=== PATIENT | female | born 1980 | race Caucasian/White ===

== ENCOUNTER 2017-04-20 01:03 | Emergency (ER) | payer MEDICAID, OTHER ==
[~2017-04-20] VITALS: Ht 162.6 cm; Wt 107.0 kg
[2017-04-20 01:07] VITALS: Ht 162.6 cm; Wt 107.0 kg
[2017-04-20] MEDS ORDERED: ALBUTEROL 0.5% (NEB) 2.5 MG/0.5 ML AMP INH STA (01:25)
[2017-04-20] MEDS ORDERED: DEXAMETHASONE 10 MG/ML 1 ML INJ IM STA (01:25)
[2017-04-20] MEDS ORDERED: IPRATROPIUM (NEB) 0.5 MG/2.5 ML AMP INH STA (01:25)
--- NOTE | 2017-04-20 01:57 | RADRPT ---
PROCEDURE: Portable chest x-ray. CLINICAL INDICATION: Asthma exacerbation. TECHNIQUE: Portable AP view of the chest. COMPARISON: None. FINDINGS: No pulmonary edema or conolidation is identified. The cardiac silhouette is magnified. No pleural effusion is seen. There is no pneumothorax. IMPRESSION: 1. No evidence of acute cardiopulmonary disease. RPTAT: HTAR .Brett Fuller MD, MD Date Time Electronically viewed and signed by .Brett Fuller MD, on 04/20/2017 01:57 .R/
[2017-04-20] MEDS ORDERED: ALBUTEROL 0.083% (NEB) 2.5 MG/3 ML AMP HHN ONE (03:07)
--- NOTE | 2017-04-20 05:24 | ERA ---
ER Documentation Chief Complaint Date/Time DATE: 04/20/17 TIME: 05:22 Chief Complaint Pt reports SOB and wheezing since yesterday HPI This is a 36-year-old female who reports shortness of a breath and wheezing since yesterday. Patient has history of asthma. No nausea no vomiting no fevers no chills no chest pain. Patient ran out of her inhaler. ROS All systems reviewed and are negative except as per history of present illness. Medications Home Meds No Active Prescriptions or Reported Meds Allergies Allergies: Coded Allergies: No Known Allergy (Unverified , 04/20/17) PMhx/Soc Medical and Surgical Hx: pt denies Medical Hx, pt denies Surgical Hx Hx Psychiatric Problems: No Hx Miscellaneous Medical Probl: No Hx Alcohol Use: No Hx Substance Use: No Hx Tobacco Use: No Smoking Status: Never smoker Physical Exam Vitals Vital Signs Date Time Temp Pulse Resp B/P Pulse Ox O2 Delivery O2 Flow Rate FiO2 04/20/17 04:20 118 24 139/82 98 Room Air 04/20/17 03:12 100 20 100 Aerosol Mask 8.0 04/20/17 02:54 99 17 140/88 100 Mask 8.0 04/20/17 01:38 118 22 99 Nasal Cannula 4.0 04/20/17 01:32 Nasal Cannula 2 04/20/17 01:26 Nasal Cannula 2.0 04/20/17 01:26 110 19 159/110 99 Nasal Cannula 2.0 04/20/17 01:07 99.1 98 28 207/108 94 Physical Exam Const: [] Head: Atraumatic Eyes: Normal Conjunctiva ENT: Normal External Ears, Nose and Mouth. Neck: Full range of motion..~ No meningismus. Resp: Scattered wheezes in all lung chanel Cardio: Regular rate and rhythm, no murmurs Abd: Soft, non tender, non distended. Normal bowel sounds Skin: No petechiae or rashes Back: No midline or flank tenderness Ext: No cyanosis, or edema Neur: Awake and alert Psych: Normal Mood and Affect Results 24 hrs Current Medications Medications (Trade) Dose Ordered Sig/Arnold Route PRN Reason Start Time Stop Time Status Last Admin Dose Admin Albuterol (Proventil 0.5% (Neb)) 15 mg ONCE STAT INH 04/20/17 01:25 04/20/17 01:27 DC 04/20/17 01:38 Ipratropium [place] (Atrovent 0.02% (Neb)) 2 mg ONCE STAT INH 04/20/17 01:25 04/20/17 01:27 DC 04/20/17 01:37 Dexamethasone (Decadron) 10 mg ONCE STAT IM 04/20/17 01:25 04/20/17 01:27 DC 04/20/17 01:46 Albuterol (Proventil 0.083% (Neb)) 15 mg ONCE ONCE HHN 04/20/17 03:07 04/20/17 03:08 DC 04/20/17 03:12 Procedures/MDM Medical decision-making: This very pleasant patient comes in with severe asthma. Inspection of the admitted for further evaluation and management. Patient admitted. Chest X-ray 1V Interpreted by me: Soft Tissue: No acute abnormalities Bones: No acute abnormalities Mediastinum/Cardiac Silhouette/Lungs: No acute abnormalities Departure Diagnosis: Primary Impression: Asthma Qualified Code: J45.51 - Severe persistent asthma with acute exacerbation Condition: Serious GITA POSEY Apr 20, 2017 05:24
[2017-04-20 05:30] LABS: BASOPHIL # 0.1 10^3/ul (0.0-0.1); EOSINOPHILS # 1.8 10^3/ul (0.0-0.5); EOSINOPHILS % 12.8 % (0.0-7.0); HEMATOCRIT 42.5 % (37.0-47.0); HEMOGLOBIN 14.3 g/dl (12.0-16.0); LYMPHOCYTES % 29.3 % (15.0-51.0); MEAN CORPUSCULAR HEMOGLOBIN 29.6 pg (29.0-33.0); MEAN CORPUSCULAR HGB CONC 33.6 g/dl (32.0-37.0); MEAN PLATELET VOLUME 10.4 fl (7.4-10.4); MONOCYTE # 0.7 10^3/ul (0.3-0.9); MONOCYTES % 5.4 % (0.0-11.0); NEUTROPHILS % 50.8 % (39.0-77.0); PLATELET COUNT 398 10^3/UL (140-415); RED BLOOD COUNT 4.83 10^6/ul (4.20-5.40); RED CELL DISTRIBUTION WIDTH 12.9 % (11.5-14.5); WHITE BLOOD COUNT 13.7 10^3/ul (4.8-10.8)
[2017-04-20 05:35] VITALS: BP 130/85; PULSE 111; RESP 22
[2017-04-20 05:48] LABS: ALBUMIN 4.3 g/dl (3.3-4.9); ALBUMIN/GLOBULIN RATIO 1.38; BILIRUBIN,INDIRECT 0.1 mg/dl (0-1.1); BILIRUBIN,TOTAL 0.1 mg/dl (0.2-1.3); CALCIUM 9.6 mg/dl (8.4-10.2); CREATININE 0.73 mg/dl (0.44-1.00); POTASSIUM 4.3 mmol/L (3.5-5.1); TOTAL PROTEIN 7.4 g/dl (6.1-8.1)
[2017-04-20] MEDS ORDERED: ONDANSETRON 4 MG INJ IV PRN (07:00)
[2017-04-20] MEDS ORDERED: ACETAMINOPHEN 325 MG TAB PO PRN (07:00)
[2017-04-20] MEDS ORDERED: BISACODYL (EC) 5 MG TAB PO PRN (07:00)
[2017-04-20] MEDS ORDERED: DOCUSATE SODIUM 100 MG CAP PO PRN (07:00)
[2017-04-20] MEDS ORDERED: NACL 0.9% 3 ML SYG IV SCH (07:00)
--- NOTE | 2017-04-20 07:04 | HP ---
Date/Time of Note Date/Time of Note DATE: 04/20/17 TIME: 06:57 Assessment/Plan VTE Prophylaxis VTE Prophylaxis Intervention: SCD's Assessment/Plan Chief Complaint/Hosp Course This is a 36 year female being admitted to the telemetry unit for: #1 asthma exacerbation: Likely environmental triggers for this exacerbation. Patient does have a elevated white blood cell count of 13 however is afebrile and chest x-ray is within normal values. Will continue to monitor for any signs of infection. At the current time we will treat patient with albuterol nebulizers every 4 hours. Prednisone 5 day burst. Provide patient with inhalers/nebulization solution upon discharge. And was admitted to the telemetry unit secondary to her being short of breath however I do see that she is improving she likely will be able to be downgraded later today if there is continued clinical improvement. The current moment I do not feel that there are any antibiotics indicated, however we will continue to monitor. #2 morbid obesity: We will check TSH, hemoglobin A1c, cholesterol #3DVT GI prophylaxis: SCDs, acid christina Further treatment strategy will be implemented as per the clinical course Problems: HPI/ROS Admit Date/Time Admit Date/Time Hx of Present Illness Chief complaint: Shortness of breath and cough 2 days This is a 36-year-old female coming in today complaining of wheezing and shortness of breath 2 days. States that she recently returned from [place] and started experiencing 2 days of cough shortness of breath. She denies any fevers. She states that she was producing white phlegm with her cough. Denies any chest pain. She does have a history of asthma and ran out of her inhaler. He denies any night sweats or weight loss. Allergies: NKDA Occasions: See JUVENCIO FU Const: As per HPI Eyes : No pain discharge or redness or change in visual acuity ENT: No pain, sore throat, congestion, congestion, dysphagia or discharge Respiratory: As per HPI Cardiovascular: No chest pain, palpitation, PND, or edema GI : no change in appetite, abdominal pain, nausea, vomiting, diarrhea, constipation, or change in the color his stool Genitourinary: No dysuria, hematuria, flank pain , discharge or CVA tenderness Musculoskeletal: No joint pain, back pain, neck pain, restricted range of motion in neck or joints Skin: No rash, bruising or hives Neuro: No headache, dizziness, syncope, seizure, focal weakness Endocrine: No polyuria, polydipsia, temperature intolerance Psych: No hallucination, depression, anxiety or suicidal ideation PMH/Family/Social Past Medical History Asthma Past Surgical History Past Surgical Hx: no surgical history Family History Significant Family History: diabetes Social History Alcohol Use: none Smoking Status: Never smoker Drug Use: none Exam/Review of Systems Vital Signs Vitals Vital Signs Date Time Temp Pulse Resp B/P Pulse Ox O2 Delivery O2 Flow Rate FiO2 04/20/17 05:35 111 22 130/85 98 Room Air 04/20/17 03:12 8.0 04/20/17 01:07 99.1 Exam Exam General: On my examination patient was lying in bed in no acute respiratory distress, however on admission as per the ED documentation she was short of breath. HEENT: Atraumatic, normocephalic. The pupils are equal, round and reactive. Extraocular motor are intact Neck: Supple with full range of motion. No rigidity or meningismus Chest: Nontender Lungs: Diffuse bilateral expiratory wheezing Heart: Normal S1-S2, Regular rhythm and rate. No murmur, S3, or S4 Abdomen: Soft , nontender, nondistended , bowel sounds are present. No guarding no rebound tenderness , No masses or organomegaly. No costovertebral temporal angle mass Extremities: Normal to inspection, no edema no cyanosis Neurologic: Normal mental status, speech normal, cranial nerves II through XII are intact, motor and sensory are intact, no focal weakness Additional Comments PROCEDURE: Portable chest x-ray. CLINICAL INDICATION: Asthma exacerbation. TECHNIQUE: Portable AP view of the chest. COMPARISON: None. FINDINGS: No pulmonary edema or conolidation is identified. The cardiac silhouette is magnified. No pleural effusion is seen. There is no pneumothorax. IMPRESSION: 1. No evidence of acute cardiopulmonary disease. RPTAT: HTAR .Brett Fuller MD, Date Time Electronically viewed and signed by .Brett Fuller MD, on 04/20/2017 01:57 .R/ CC: GITA POSEY Labs Result Diagram: 04/20/17 0508 04/20/17 0508 NICKY MENDEZ Apr 20, 2017 07:04
[2017-04-20] MEDS ORDERED: FAMOTIDINE 20 MG TAB PO SCH (09:00)
[2017-04-20] MEDS ORDERED: predniSONE 20 MG TAB PO SCH (09:00)
[2017-04-20] MEDS ORDERED: ALBUTEROL 0.083% (NEB) 2.5 MG/3 ML AMP HHN SCH (09:00)
== END 2017-04-20 10:49 | disposition left against medical advice (07) ==
LOC: E/R 01:03
DX: J45.51 Severe persistent asthma with (acute) exacerbation (principal)
CPT/HCPCS: 36415; 71010; 80053; 83690; 85025; 86140; 94644; 94645; 96372; J1100; Z7502; Z7610